=== PATIENT | female | born 1990 ===

== ENCOUNTER 2017-12-19 17:58 | Emergency (ER) | payer SELFPAY ==
[2017-12-19] MEDS ORDERED: Sodium Chloride 0.9% 500 ML IV STA (18:46)
--- NOTE | 2017-12-19 19:15 | ED PDOC ---
Arrival/HPI - General Chief Complaint: Chest Pain Time Seen by Provider: 12/19/17 18:09 Historian: Patient - History of Present Illness Narrative History of Present Illness (Text): 12/19/17 19:11 27yr old female presents today with 1 month history of right upper and lower dental pain and 4 month history of intermittent chest pain. pt denies fever/chills. denies cough. no dizziness or weakness. pt states she has been feeling extremely stressed lately and has been thinking too much at home. pt denies depression or SI. pt denies abdominal pain. no n/v/d/c. pt denies back pain. pt states at times she feels like her heart skips a beat. pt denies shortness of breath at present time. pt denies any chest pain at present time. no other complaints. Past Medical History - Provider Review Nursing Documentation Reviewed: Yes - Travel History Have you recently traveled outside [place] w/in the past 3 mons?: No - Psychiatric Hx Substance Use: No - Anesthesia Hx Anesthesia: Yes Hx Anesthesia Reactions: No Hx Malignant Hyperthermia: No Family/Social History - Physician Review Nursing Documentation Reviewed: Yes Family/Social History: Unknown Family HX Smoking Status: Never Smoked Hx Alcohol Use: Yes Frequency of alcohol use: Socially Hx Substance Use: No Allergies/Home Meds Allergies/Adverse Reactions: Allergies No Known Allergies Allergy (Verified 12/19/17 18:08) Review of Systems - Review of Systems Constitutional: absent: Fatigue, Fevers ENT: Other (dental pain) Respiratory: SOB Cardiovascular: Chest Pain, Palpitations Gastrointestinal: absent: Abdominal Pain, Constipation, Diarrhea, Nausea, Vomiting Genitourinary Female: absent: Dysuria, Frequency, Hematuria Musculoskeletal: absent: Arthralgias, Back Pain, Neck Pain Skin: absent: Rash, Pruritis Neurological: absent: Headache, Dizziness Psychiatric: absent: Anxiety, Depression, Suicidal Ideation Physical Exam Vital Signs Reviewed: Yes Vital Signs Temp Pulse Resp BP Pulse Ox 12/19/17 18:27 98.8 F 88 16 122/69 99 Temperature: Afebrile Blood Pressure: Normal Pulse: Regular Respiratory Rate: Normal Appearance: Positive for: Well-Appearing, Non-Toxic, Comfortable Pain Distress: None Mental Status: Positive for: Alert and Oriented X 3 - Systems Exam Head: Present: Atraumatic Extroacular Muscles: Present: EOMI Conjunctiva: Present: Normal Ears: Present: Normal, NORMAL TM Mouth: Present: Moist Mucous Membranes, Normal Lips. No: Drooling, Trismus, Normal Teeth (+ left lower dental fracture; no edema; + tenderness; ) Pharnyx: Present: Normal. No: ERYTHEMA, EXUDATE Nose (External): Present: Atraumatic Nose (Internal): Present: Normal Inspection Neck: Present: Normal Range of Motion, Trachea Midline Respiratory/Chest: Present: Clear to Auscultation, Good Air Exchange. No: Res piratory Distress, Accessory Muscle Use Cardiovascular: Present: Regular Rate and Rhythm, Normal S1, S2. No: Murmurs Abdomen: No: Tenderness, Distention, Rebound, Guarding Back: Present: Normal Inspection Upper Extremity: Present: Normal ROM Lower Extremity: Present: Normal ROM Neurological: Present: GCS=15, Speech Normal Skin: Present: Warm, Dry, Normal Color. No: Rashes Psychiatric: Present: Alert, Oriented x 3 Medical Decision Making ED Course and Treatment: 12/19/17 19:55 pt with chest pain/palpitations for 4 months and toothache. cbc; wnl cmp; wnl d-dimer; wnl ekg; normal sinus rhythm at 87b/m no st elevations. cxr: wnl pt reassessment; pt is non toxic well appearing; no distress. stable vitals. pt with left lower dental fracture and pain will treat with amoxicillin, toradol given for pain. all results discussed with patient; pt was advised to f/u with dentist and data management. pt was advised return if symptoms worsen,persist or if new symptoms develop. Patient verbalizes understanding of discharge instructions and need for immediate followup. all aspects of this case were discussed the attending of record. Impression: Toothache, palpitations Motrin every 6 hours as needed for pain Amoxicillin 1 tablet 3 times daily 10 days increase fluids Follow up with the data management within the next 2 days. Follow-up with the dentist within the next 2 days Return immediately if symptoms worsen persist or if new concerning symptoms develop [facility] [address] [place] [address] [address] [place], [place] [phone] - RAD Interpretation Radiology Orders: 12/19/17 18:46 CHEST PORTABLE [RAD] Stat - Medication Orders Current Medication Orders: Sodium Chloride (Sodium Chloride 0.9%) 500 mls @ 999 mls/hr IV .Q31M STA Stop: 12/19/17 19:16 Disposition/Present on Arrival - Present on Arrival Any Indicators Present on Arrival: No History of DVT/PE: No History of Uncontrolled Diabetes: No Urinary Catheter: No History of Decub. Ulcer: No History Surgical Site Infection Following: None - Disposition Have Diagnosis and Disposition been Completed?: Yes Diagnosis: Toothache, Palpitations Disposition: HOME/ ROUTINE Disposition Time: 22:00 Patient Plan: Discharge Patient Problems: Current Active Problems Problem Status Onset Palpitations Acute Toothache Acute Condition: GOOD Discharge Instructions (ExitCare): Dental Pain (DC), Dental Pain, Palpitations (DC) Additional Instructions: Motrin every 6 hours as needed for pain Amoxicillin 1 tablet 3 times daily 10 days increase fluids Follow up with the data management within the next 2 days. Follow-up with the dentist within the next 2 days Return immediately if symptoms worsen persist or if new concerning symptoms develop [facility] [address] [place] [address] [place] [address] [phone] Prescriptions: Amoxicillin 500 mg PO TID #30 tab Ibuprofen [Motrin] 600 mg PO Q6H PRN #20 tab PRN Reason: pain/fever reduction Referrals: Hardy Amezquita DMD [Non-Staff] - Follow up with primary Cliff Varghese DMD [Staff Provider] - Follow up with primary Eloisa Salguero MD [Staff Provider] - Follow up with primary Xochitl Fernandez MD [Medical Doctor] - Follow up with primary [facility] [Outside] - Follow up with primary Forms: [employer] (Senegalese), WORK NOTE
[2017-12-19 20:19] LABS: BASO # 0.02 K/mm3 (0.0-2.0); BASO % 0.7 % (0.0-3.0); EOS % 1.3 % (1.5-5.0); GRAN # 1.47 (1.4-6.5); GRAN % 48.4 % (50.0-68.0); HEMOGLOBIN 12.2 g/dL (12.0-16.0); LYMPH # 1.3 (1.2-3.4); LYMPH % 42.4 % (22.0-35.0); MEAN CELL VOLUME 90.2 fl (80.0-105.0); MEAN CORPUSCULAR HEMOGLOBIN 30.6 pg (25.0-35.0); MEAN CORPUSCULAR HGB CONC 33.9 g/dl (31.0-37.0); MONO # 0.2 (0.1-0.6); MONO % 7.2 % (1.0-6.0); RBC 3.99 10^6/uL (3.5-6.1); RED CELL DISTRIBUTION WIDTH 13.8 % (11.5-14.5)
[2017-12-19 20:28] LABS: ALB/GLOB RATIO 1.3 (1.1-1.8); ALBUMIN 4.5 g/dL (3.0-4.8); ALT/SGPT 24 U/L (7-56); AST/SGOT 23 U/L (14-36); BLOOD UREA NITROGEN 11 mg/dL (7-21); CALCIUM 9.3 mg/dL (8.4-10.5); GFR NON-AFRICAN AMERICAN > 60
[2017-12-19 21:39] VITALS: RESP 18
[2017-12-20 00:48] VITALS: BP 113/66; PULSE 83; TEMP 98.2; O2SAT 97
--- NOTE | 2017-12-20 09:11 | RAD ---
HISTORY: intermittent cp and sob x 4 months COMPARISON: No prior. TECHNIQUE: Chest, one view. FINDINGS: LUNGS: No focal consolidation. Please note that chest x-ray has limited sensitivity for the detection of pulmonary masses. PLEURA: No significant pleural effusion identified. No definite pneumothorax . CARDIOVASCULAR: The cardiomediastinal silhouette appears within normal limits of size. No significant atherosclerotic calcification identified. OSSEOUS STRUCTURES: No acute osseous abnormality identified. VISUALIZED UPPER ABDOMEN: Unremarkable. OTHER FINDINGS: None. IMPRESSION: No focal consolidation, significant pleural effusion, or definite pneumothorax identified.
--- NOTE | 2017-12-20 10:15 | CARD ---
APPROVED REPORT Date of service: 12/19/2017 EKG Measurement Heart [id number] <Conclusion> Normal sinus rhythm Incomplete right bundle branch block Borderline ECG
== END 2017-12-20 01:21 | disposition home or self-care (01) ==
LOC: ED 17:58 → MERGE 17:58 → ED 12-20 01:21
DX: R00.2 Palpitations (principal); K08.89 Other specified disorders of teeth and supporting structures
CPT/HCPCS: 71045; 80053; 85025; 85378; 93005; 96360; 96372; 99283; J1885; J7040

== ENCOUNTER 2018-04-01 03:53 | Emergency (ER) | payer MEDICAID, OTHER ==
[2018-04-01 04:10] VITALS: O2SAT 100
--- NOTE | 2018-04-01 04:10 | ED PDOC ---
Arrival/HPI - General Chief Complaint: Female Genitourinary Time Seen by Provider: 04/01/18 04:02 Historian: Patient - History of Present Illness Narrative History of Present Illness (Text): 04/01/18 04:10 Bree Patterson is a 28 year old female who presents to the Emergency department complaining of vaginal bleeding. Patient states she has been experiencing intermittent vaginal bleeding over the past month and some occassional abdominal cramping and lower back discomfort. Patient notes she had a miscarriage last year and had similar symptoms. Patient states she may be and reports, if , she would be P:0 A:2. Patient denies any fever, chills, nausea, vomiting, diarrhea, urinary changes, headache, dizziness, or any other complaints. Symptom Onset: Gradual Symptom Course: Unchanged Activities at Onset: Light Context: Home Past Medical History - Provider Review Nursing Documentation Reviewed: Yes - Psychiatric Hx Substance Use: No - Anesthesia Hx Anesthesia: Yes Hx Anesthesia Reactions: No Hx Malignant Hyperthermia: No Family/Social History - Physician Review Nursing Documentation Reviewed: Yes Family/Social History: Unknown Family HX Smoking Status: Heavy Smoker > 10 Cigarettes Daily Hx Alcohol Use: No Hx Substance Use: No Allergies/Home Meds Allergies/Adverse Reactions: Allergies No Known Allergies Allergy (Verified 04/01/18 04:06) Home Medications: Home Meds Medication Instructions Recorded Confirmed No Known Home Med 04/01/18 04/01/18 Review of Systems - Physician Review All systems were reviewed & negative as marked: Yes - Review of Systems Constitutional: Normal. absent: Fevers Eyes: Normal ENT: Normal Respiratory: Normal. absent: SOB, Cough Cardiovascular: Normal. absent: Chest Pain Gastrointestinal: Abdominal Pain Genitourinary Female: Vaginal Bleeding. absent: Hematuria, Urine Output Changes Musculoskeletal: absent: Neck Pain Skin: Normal. absent: Rash Neurological: Normal. absent: Headache, Dizziness Endocrine: Normal Hemo/Lymphatic: Normal Psychiatric: Normal Physical Exam Vital Signs Reviewed: Yes Vital Signs Temp Pulse Resp BP Pulse Ox 04/01/18 04:06 98 F 60 16 113/71 100 Temperature: Afebrile Blood Pressure: Normal Pulse: Regular Respiratory Rate: Normal Appearance: Positive for: Well-Appearing, Non-Toxic, Comfortable Pain Distress: None Mental Status: Positive for: Alert and Oriented X 3 - Systems Exam Head: Present: Atraumatic, Normocephalic Pupils: Present: PERRL Extroacular Muscles: Present: EOMI Conjunctiva: Present: Normal Mouth: Present: Moist Mucous Membranes Neck: Present: Normal Range of Motion Respiratory/Chest: Present: Clear to Auscultation, Good Air Exchange. No: Respiratory Distress, Accessory Muscle Use Cardiovascular: Present: Regular Rate and Rhythm, Normal S1, S2. No: Murmurs Abdomen: No: Tenderness, Distention, Peritoneal Signs Genitourinary/Pelvic Exam: Present: Normal External Genitalia, Vaginal Bleeding (minimal blood vaginal introitus /no active heavy bleeding) Back: Present: Normal Inspection. No: Midline Tenderness, Paraspinal Tenderness Upper Extremity: Present: Normal Inspection. No: Cyanosis, Edema Lower Extremity: Present: Normal Inspection. No: Edema Neurological: Present: GCS=15, CN II-XII Intact, Speech Normal, Motor Func Elizabeth sly Intact, Normal Sensory Function Skin: Present: Warm, Dry, Normal Color. No: Rashes Psychiatric: Present: Alert, Oriented x 3, Normal Insight, Normal Concentration Medical Decision Making ED Course and Treatment: 04/01/18 04:10 Impression: 28 year old female complaining of intermittent vaginal bleeding for 1 month and some abdominal cramping. Plan: -- Labs, Beta-HCG -- Labs -- Urinalysis -- Reassess and disposition Progress Notes: - Scribe Statement The provider has reviewed the documentation as recorded by the Oliver Jolly Provider Scribe Attestation: All medical record entries made by the Scribe were at my direction and personally dictated by me. I have reviewed the chart and agree that the record accurately reflects my personal performance of the history, physical exam, medical decision making, and the department course for this patient. I have also personally directed, reviewed, and agree with the discharge instructions and disposition. Disposition/Present on Arrival - Present on Arrival Any Indicators Present on Arrival: No History of DVT/PE: No History of Uncontrolled Diabetes: No Urinary Catheter: No History of Decub. 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
[2018-04-01 04:45] LABS: HEMOGLOBIN 11.9 g/dL (12.0-16.0); MEAN CELL VOLUME 90.4 fl (80.0-105.0); MEAN CORPUSCULAR HEMOGLOBIN 30.2 pg (25.0-35.0); MEAN CORPUSCULAR HGB CONC 33.4 g/dl (31.0-37.0); MEAN PLATELET VOLUME 10.2 fl (7.0-11.0); RBC 3.94 10^6/uL (3.5-6.1); WHITE BLOOD COUNT 3.5 10^3/uL (4.5-11.0)
[2018-04-01 04:56] LABS: URINE BILIRUBIN NEGATIVE (NEGATIVE); URINE BLOOD LARGE (NEGATIVE); URINE GLUCOSE (UA) NEGATIVE (NEGATIVE); URINE LEUKOCYTE ESTERASE NEGATIVE Leu/uL (NEGATIVE); URINE PROTEIN TRACE mg/dL (<30 mg/dL); URINE UROBILINOGEN 0.2 E.U./dL (<1 E.U./dL)
[2018-04-01 05:03] LABS: URINE APPEARANCE SL CLOUDY (CLEAR); URINE COLOR YELLOW (YELLOW)
[2018-04-01 05:07] LABS: ALB/GLOB RATIO 1.3 (1.1-1.8); ALBUMIN 4.6 g/dL (3.0-4.8); ALT/SGPT 27 U/L (7-56); AST/SGOT 20 U/L (14-36); BLOOD UREA NITROGEN 10 mg/dL (7-21); CALCIUM 9.4 mg/dL (8.4-10.5); GFR NON-AFRICAN AMERICAN > 60
[2018-04-01 05:09] LABS: HCG,QUALITATIVE URINE NEGATIVE (NEGATIVE); URINE AMORPHOUS SEDIMENT FEW /hpf; URINE BACTERIA FEW /hpf; URINE WBC 0 - 2 /hpf (0-6)
[2018-04-01 07:25] VITALS: BP 118/71; PULSE 62; RESP 18; TEMP 97.9
== END 2018-04-01 06:45 | disposition home or self-care (01) ==
LOC: ED 03:53
DX: N93.8 Other specified abnormal uterine and vaginal bleeding (principal); F17.210 Nicotine dependence, cigarettes, uncomplicated

== ENCOUNTER 2018-04-23 22:25 | Emergency (ER) | payer OTHER ==
[2018-04-23 22:33] VITALS: BMI 23.8
--- NOTE | 2018-04-23 22:57 | ED PDOC ---
Arrival/HPI <Javi Gardner - Last Filed: 04/24/18 02:00> - General Historian: Patient - History of Present Illness Narrative History of Present Illness (Text): 04/23/18 22:55 28 y/o female with PMH of DUB presents to the ED with palpitations and chest discomfort for the past 2 months. She is anxious about being despite being not sexually active with persistent irregular vaginal bleeding that is dark in color. Patient was seen in [facility] ED twice for the 2 month with the same symptoms and was told to see OB for her DUB and top carrier her palpitations. She is scheduled to see her OB on 04/25. Patient denied fever, chills, foul vaginal discharge, dysurea, vaginal pruritis, urinary frequency, cough, N/V/D, abdominal pain, change in bowel movement, focal neurological symptoms, rash, . She admits to not using any drugs/alcohol. 04/23/18 22:57 04/23/18 23:03 Time/Duration: > month Symptom Onset: Gradual Symptom Course: Unchanged Quality: Tightness Context: Standing, Walking <Roger Sykes - Last Filed: 04/24/18 02:24> - General Chief Complaint: Palpitations Time Seen by Provider: 04/23/18 22:27 Past Medical History - Provider Review Nursing Documentation Reviewed: Yes - Pulmonary Hx Respiratory Disorders: No - Psychiatric Hx Psychophysiologic Disorder: Yes Hx Anxiety: Yes Hx Substance Use: No (DENIES) - Anesthesia Hx Anesthesia: Yes Hx Anesthesia Reactions: No Hx Malignant Hyperthermia: No <Roger Sykes - Last Filed: 04/24/18 02:24> Family/Social History - Physician Review Nursing Documentation Reviewed: Yes Family/Social History: No Known Family HX Smoking Status: Current Some Days Smoker Hx Alcohol Use: No Hx Substance Use: No (DENIES) <Roger Sykes - Last Filed: 04/24/18 02:24> Allergies/Home Meds <Javi Gardner - Last Filed: 04/24/18 02:00> <Roger Sykes - Last Filed: 04/24/18 02:24> Allergies/Adverse Reactions: Allergies No Known Allergies Allergy (Verified 04/01/18 04:06) Home Medications: Home Meds Medication Instructions Recorded Confirmed No Known Home Med 04/01/18 04/23/18 Review of Systems - Physician Review All systems were reviewed & negative as marked: Yes - Review of Systems Constitutional: Normal. absent: Fatigue, Weight Change, Fevers Eyes: Normal ENT: Normal Respiratory: Normal Cardiovascular: Chest Pain, Palpitations. absent: Orthopnea, Syncope Gastrointestinal: Normal. absent: Abdominal Pain, Nausea, Vomiting Genitourinary Female: Vaginal Bleeding. absent: Dysuria, Hematuria, Urine Output Changes, Vaginal Discharge Musculoskeletal: Normal Skin: Normal. absent: Rash, Pruritis Neurological: Normal. absent: Headache, Dizziness Endocrine: Normal Hemo/Lymphatic: Normal Psychiatric: Anxiety <Roger Sykes - Last Filed: 04/24/18 02:24> Physical Exam Vital Signs Temp Pulse Resp BP Pulse Ox 04/23/18 22:33 98 F 120 H 20 150/95 H 100 <Javi Gardner - Last Filed: 04/24/18 02:00> Vital Signs Temp Pulse Resp BP Pulse Ox 04/23/18 22:33 98 F 120 H 20 150/95 H 100 Temperature: Afebrile Blood Pressure: Hypertensive Pulse: Tachycardic Respiratory Rate: Tachypneic Appearance: Positive for: Non-Toxic, Other (anxious) Pain Distress: None Mental Status: Positive for: Alert and Oriented X 3, other (anxious) - Systems Exam Head: Present: Atraumatic, Normocephalic Pupils: Present: PERRL Extroacular Muscles: Present: EOMI Conjunctiva: Present: Normal Mouth: Present: Dry Pharnyx: Present: Normal Nose (External): Present: Atraumatic Nose (Internal): Present: Normal Inspection Respiratory/Chest: Present: Clear to Auscultation, Good Air Exchange. No: Respiratory Distress, Wheezes, Rhonchi Cardiovascular: Present: Normal S1, S2, Tachycardic Abdomen: Present: Normal Bowel Sounds. No: Tenderness, Distention Genitourinary/Pelvic Exam: Present: Other (no pelvic exam done. patient is not currently bleeding) Upper Extremity: Present: Normal Inspection. No: Cyanosis, Edema Lower Extremity: Present: Normal Inspection. No: Edema Neurological: Present: GCS=15, CN II-XII Intact, Speech Normal Skin: Present: Warm, Dry. No: Rashes Lymphatic: No: Cervical Adenopathy, Axillary Adenopathy Psychiatric: Present: Alert, Oriented x 3, Anxious <Roger Sykes - Last Filed: 04/24/18 02:24> Medical Decision Making ED Course and Treatment: Impression: Pt seen and evaluated with remote medical coder. Aware and agree with HPI, clinical findings, plan, and management. Pt, whose past medical history includes dysfunctional uterine bleeding, presented with palpitation and chest discomfort. Plan: -- EKG -- Labs, D-dimer -- Urinalysis -- Xanax -- Reassess and disposition - Lab Interpretations Lab Results: D-Dimer, Quantitative < 200 ng/mlDDU (0-243) 04/23/18 23:22 - Medication Orders Current Medication Orders: Discontinued Medications Alprazolam (Xanax) 0.25 mg PO STAT STA; Protocol Stop: 04/23/18 22:50 Last Admin: 04/23/18 23:26 Dose: 0.25 mg <Javi Gardner - Last Filed: 04/24/18 02:00> ED Course and Treatment: 04/23/18 23:09 assessment: 28 y/o female presents with persistent palpitations and irregular vaginal bleeding Plan: urine test UA Lab EKG cardiac monitoring D-dimer xanax 0.25 mg PO 04/24/18 01:33 HR is 82 after xanas administration. Patient is in NAD Labs review wnl D-dimer wnl Re-evaluation Time: 01:32 Reassessment Condition: Re-examined, Improved - Lab Interpretations I have reviewed the lab results: Yes Interpretation: No clinic. lab abnormalty - EKG Interpretation Interpreted by ED Physician: Yes (tachy @112 bpm, RBBB) Type: 12 lead EKG Comparison: Different from prev. EKG (previous EKG shows IRBBB, NSR) - Medication Orders Current Medication Orders: Alprazolam (Xanax) 0.25 mg PO STAT STA; Protocol Stop: 04/23/18 22:50 <Roger Sykes - Last Filed: 04/24/18 02:24> - PA / DELI SLICER / Resident Statement / has reviewed & agrees with the documentation as recorded. / has examined the patient and agrees with the treatment plan. <Javi Gardner - Last Filed: 04/24/18 02:00> Disposition/Present on Arrival <Javi Gardner - Last Filed: 04/24/18 02:00> - Present on Arrival Any Indicators Present on Arrival: No History of DVT/PE: No History of Uncontrolled Diabetes: No Urinary Catheter: No History of Decub. Ulcer: No History Surgical Site Infection Following: None - Disposition Have Diagnosis and Disposition been Completed?: Yes Disposition Time: : Patient Plan: Discharge <Roger Sykes - Last Filed: 04/24/18 02:24> - Disposition Diagnosis: Anxiety, Palpitations, DUB (dysfunctional uterine bleeding) Disposition: HOME/ ROUTINE Patient Problems: Current Active Problems Problem Status Onset Anxiety Acute DUB (dysfunctional uterine bleeding) Acute Palpitations Acute Condition: STABLE Discharge Instructions (ExitCare): Anxiety, Adult (DC), Heavy Periods (DC), Palpitations (DC) Additional Instructions: Please keep your appointment with your OB doctor on 04/25 Follow up with a top carrier for palpitations Follow up with your primary care physician within 1-2 days Forms: [employer] (Singaporean), WORK NOTE
[2018-04-23 23:32] LABS: BASO # 0.01 K/mm3 (0.0-2.0); BASO % 0.2 % (0.0-3.0); EOS % 0.5 % (1.5-5.0); HEMOGLOBIN 11.5 g/dL (12.0-16.0); LYMPH # 1.4 (1.2-3.4); LYMPH % 32.5 % (22.0-35.0); MEAN CELL VOLUME 91.1 fl (80.0-105.0); MEAN CORPUSCULAR HEMOGLOBIN 30.3 pg (25.0-35.0); MEAN CORPUSCULAR HGB CONC 33.2 g/dl (31.0-37.0); MEAN PLATELET VOLUME 9.8 fl (7.0-11.0); MONO # 0.4 (0.1-0.6); MONO % 8.5 % (1.0-6.0); RBC 3.8 10^6/uL (3.5-6.1); RED CELL DISTRIBUTION WIDTH 13.3 % (11.5-14.5); WHITE BLOOD COUNT 4.2 10^3/uL (4.5-11.0)
[2018-04-24 00:01] LABS: URINE BILIRUBIN NEGATIVE (NEGATIVE); URINE BLOOD NEGATIVE (NEGATIVE); URINE GLUCOSE (UA) NEGATIVE (NEGATIVE); URINE LEUKOCYTE ESTERASE NEGATIVE Leu/uL (NEGATIVE); URINE PROTEIN NEGATIVE mg/dL (<30 mg/dL); URINE UROBILINOGEN 0.2 E.U./dL (<1 E.U./dL)
[2018-04-24 00:05] LABS: URINE APPEARANCE CLEAR (CLEAR); URINE COLOR YELLOW (YELLOW)
[2018-04-24 00:07] LABS: ALB/GLOB RATIO 1.3 (1.1-1.8); ALBUMIN 4.4 g/dL (3.0-4.8); ALT/SGPT 21 U/L (7-56); AST/SGOT 25 U/L (14-36); BLOOD UREA NITROGEN 16 mg/dL (7-21); CALCIUM 9.4 mg/dL (8.4-10.5); GFR NON-AFRICAN AMERICAN > 60
[2018-04-24 03:18] VITALS: BP 100/56; PULSE 78; RESP 18; TEMP 97.8; O2SAT 98
--- NOTE | 2018-04-24 13:13 | CARD ---
APPROVED REPORT Date of service: 04/23/2018 EKG Measurement Heart [id number] [id number] <Conclusion> Sinus tachycardia Incomplete right bundle branch block Abnormal ECG
== END 2018-04-24 03:15 | disposition home or self-care (01) ==
LOC: ED 22:25
DX: F41.9 Anxiety disorder, unspecified (principal); R00.2 Palpitations; N93.8 Other specified abnormal uterine and vaginal bleeding